=== PATIENT | female | born 1935 | race Caucasian/White ===

== ENCOUNTER 2020-08-21 07:26 | Outpatient (CLI) | payer MEDICARE, MEDICAID ==
[2020-08-21] VITALS (21 sets, daily range): BP systolic 97–143; BP diastolic 43–72
[~2020-08-21 07:26] MED LIST: AMA1T PO; AMLO10TA PO; ASPI81TA30 PO; ENAL10TA78 PO; EZET1TAB35 PO; LANTUS SUBCUT; METF500T PO
== END 2020-08-21 23:59 | disposition home or self-care (01) ==
LOC: CARD DIAG 07:26
PROVIDERS: ATTEND Internal Medicine Cardiovascular Disease
DX: R42 Dizziness and giddiness (principal)
CPT/HCPCS: 93660

== ENCOUNTER 2022-06-04 13:27 | Outpatient (CLI) | payer MEDICARE, MEDICAID | END 2022-06-04 23:59 | disposition home or self-care (01) | LOC: RAD 13:27 | PROVIDERS: ATTEND Internal Medicine Cardiovascular Disease | DX: I08.0 Rheumatic disorders of both mitral and aortic valves (principal); R06.02 Shortness of breath | CPT/HCPCS: 93306 ==